=== PATIENT | female | born 1975 | race Two or more races ===

== ENCOUNTER 2021-05-03 16:10 | Emergency (ER) | payer MEDICARE ==
[~2021-05-03] VITALS: Ht 157.5 cm; Wt 113.4 kg
[2021-05-03] MEDS ORDERED: KETOROLAC TROMETH 30 MG/ML 1ML VIAL IV ONE (19:15)
[2021-05-03] MEDS ORDERED: SODIUM CHLORIDE 0.9% 500 ML IV ONE (19:15)
[2021-05-03] MEDS ORDERED: IOHEXOL 300 MG/ML 100ML BOTTLE IJ ONE (20:34)
[2021-05-03] MEDS ORDERED: ONDANSETRON HCL 4 MG/2 ML VIAL ONE (21:22)
[2021-05-03] MEDS ORDERED: ONDANSETRON ODT 4 MG TAB PO ONE (21:30)
[2021-05-03 21:42] LABS: Basophils # (auto) 0 10 ^3/uL (0-0.2); Basophils % (auto) 0.7 % (0.0-2.0); Eosinophils # (auto) 0.3 10 ^3/uL (0-0.8); Hemoglobin 12.7 g/dL (12.2-16.2); Lymphocytes % (auto) 34.9 % (10.0-50.0); Mean Corpuscular Volume 82.3 fL (80.0-100.0); Monocytes # (auto) 0.3 10 ^3/uL (0-1.3); Red Cell Distribution Width 14.7 % (11.8-14.3)
[2021-05-03 21:44] LABS: Eosinophils % (auto) 5.1 % (0.0-7.0); Hematocrit 39.7 % (36.0-46.0); Lymphocytes # (auto) 2.1 10 ^3/uL (0.4-5.4); Mean Corpuscular Hemoglobin 26.2 pg (28.0-32.0); Mean Corpuscular Hgb Conc. 31.9 g/dL (32.0-36.0); Monocytes % (auto) 5.6 % (0.0-12.0); Neutrophils # (auto) 3.3 10 ^3/uL (1.6-8.6); Neutrophils % (auto) 53.7 % (37.0-80.0); Nucleated Red Blood Cells % 0.1 %; Red Blood Cells 4.82 10^6/uL (4.0-5.20); White Blood Cell 6.1 10^3/uL (4.4-10.8)
[2021-05-03 21:59] LABS: Albumin 3.4 g/dL (3.4-5.0); BUN/Creatinine Ratio 18.2; Calcium 8.9 mg/dL (8.5-10.1); Potassium 3.9 mmol/L (3.5-5.1)
[2021-05-03 22:02] LABS: Bilirubin, Total 0.2 mg/dL (0.2-1.0); Total Protein 8.8 g/dL (6.4-8.2)
[2021-05-03] MEDS ORDERED: fentaNYL CITRATE 100 MCG/2 ML VL IV ONE (23:45)
[2021-05-04] MEDS ORDERED: ONDANSETRON HCL 4 MG/2 ML VIAL IV ONE ×2 (01:30→04:00)
[2021-05-04] MEDS ORDERED: MORPHINE SULFATE 4 MG/ML SYR/VIAL IV ONE ×2 (01:30→04:00)
[2021-05-04] MEDS ORDERED: MORPHINE SULFATE 4 MG/ML SYR/VIAL ONE (03:55)
[2021-05-04] MEDS ORDERED: MORPHINE SULFATE INJECTION 2 MG/ML SYRG ONE (03:56)
[2021-05-04 05:01] VITALS: BP 127/85
== END 2021-05-04 05:16 | disposition left against medical advice (07) ==
LOC: ER 16:10
DX: J90 Pleural effusion, not elsewhere classified (principal); J93.9 Pneumothorax, unspecified; C78.7 Secondary malignant neoplasm of liver and intrahepatic bile duct; C48.2 Malignant neoplasm of peritoneum, unspecified; Z88.5 Allergy status to narcotic agent; Z20.822 Contact with and (suspected) exposure to COVID-19
CPT/HCPCS: 36415; 71260; 74177; 80053; 83880; 85025; 87426; 93005; 96361; 96374; 96375; 96376; 99285; J1885; J2270; J2405; J3010; Q0162; Q9967

== ENCOUNTER 2021-08-01 07:55 | Inpatient (IN) | payer MEDICARE, MEDICAID ==
[~2021-08-01] VITALS: Ht 157.5 cm; Wt 106.3 kg
[2021-08-01] MEDS ORDERED: HYDROmorphone HCL 2 MG/ML VL IV ONE ×2 (09:30→10:30)
[2021-08-01] MEDS ORDERED: ONDANSETRON HCL 4 MG/2 ML VIAL IV ONE (09:30)
[2021-08-01 09:35] LABS: Basophils # (auto) 0 10 ^3/uL (0-0.2); Basophils % (auto) 0.3 % (0.0-2.0); Eosinophils # (auto) 0 10 ^3/uL (0-0.8); Hematocrit 38.7 % (36.0-46.0); Hemoglobin 12.3 g/dL (12.2-16.2); Lymphocytes # (auto) 0.5 10 ^3/uL (0.4-5.4); Lymphocytes % (auto) 3.4 % (10.0-50.0); Mean Corpuscular Hemoglobin 24.7 pg (28.0-32.0); Mean Corpuscular Hgb Conc. 31.8 g/dL (32.0-36.0); Mean Corpuscular Volume 77.5 fL (80.0-100.0); Monocytes # (auto) 0.1 10 ^3/uL (0-1.3); Monocytes % (auto) 0.9 % (0.0-12.0); Neutrophils # (auto) 14.2 10 ^3/uL (1.6-8.6); Neutrophils % (auto) 95.4 % (37.0-80.0); Red Blood Cells 4.99 10^6/uL (4.0-5.20); Red Cell Distribution Width 17.4 % (11.8-14.3); White Blood Cell 14.9 10^3/uL (4.4-10.8)
[2021-08-01 09:44] LABS: Albumin 2.9 g/dL (3.4-5.0); Anion Gap 6 (5-15); Blood Urea Nitrogen 12 mg/dL (7-18); Calcium 8.6 mg/dL (8.5-10.1); Carbon Dioxide 23 mmol/L (21-32); Chloride 105 mmol/L (98-107); Glucose 153 mg/dL (74-106); Potassium 3.6 mmol/L (3.5-5.1); Sodium 134 mmol/L (136-145)
[2021-08-01 09:50] LABS: Alanine Aminotransferase 15 U/L (13-56); Alkaline Phosphatase 117 U/L (45-117); Aspartate Aminotransferase 27 U/L (15-37); BUN/Creatinine Ratio 22.6; Bilirubin, Total 0.7 mg/dL (0.2-1.0); GFR African American 160 mL/min; GFR Non-African American 133 mL/min; Total Protein 8.5 g/dL (6.4-8.2)
[2021-08-01] MEDS ORDERED: SODIUM CHLORIDE 0.9% 1,000 ML IVB ONE (10:30)
[2021-08-01] MEDS ORDERED: PROCHLORPERAZINE EDISYLATE 5 MG/ML 2ML VIAL IV ONE (10:30)
[2021-08-01 10:59] LABS: Magnesium 1.6 mg/dL (1.6-2.6)
[2021-08-01] MEDS ORDERED: NITROGLYCERIN 0.4 MG SL TAB SL PRN (14:00)
[2021-08-01] MEDS ORDERED: MAGNESIUM SULFATE 1GM/100ML 100 ML IV ONE (14:15)
[2021-08-01] MEDS ORDERED: SODIUM CHLORIDE 0.9% 1,000 ML IV ONE (14:15)
[2021-08-01] MEDS ORDERED: cefTRIAXone 1GM/50ML D5W 50 ML IV SCH (14:15)
[2021-08-01] MEDS ORDERED: NICOTINE 14 MG/24HR TOPICAL PATCH TD ONE (14:30)
[2021-08-01] MEDS: cefTRIAXone 1GM/50ML D5W 50 ML IV SCH (14:58)
[2021-08-01] MEDS: AZITHROMYCIN 500MG/ 250ML 250 ML IV SCH (15:37)
[2021-08-01 16:51] VITALS: BP 142/91
[2021-08-01 17:27] VITALS: BP 142/91
[2021-08-01] MEDS: METOCLOPRAMIDE HCL 5MG/ml INJ 2ml VIAL IV PRN (17:30)
[2021-08-01] MEDS: MORPHINE SULFATE INJECTION 2 MG/ML SYRG IV PRN ×3 (17:30→22:03)
[2021-08-01] MEDS: HYDROcodone-ACET 5/325MG TAB PO PRN (19:20)
[2021-08-01 20:00] VITALS: BP 140/81
[2021-08-02] VITALS (11 sets, daily range): BP systolic 106–127; BP diastolic 70–90
[2021-08-02] MEDS: MORPHINE SULFATE INJECTION 2 MG/ML SYRG IV PRN ×5 (02:01→20:16)
[2021-08-02] MEDS: AZITHROMYCIN 500MG/ 250ML 250 ML IV SCH (09:20)
[2021-08-02] MEDS: cefTRIAXone 1GM/50ML D5W 50 ML IV SCH (09:20)
[2021-08-02 09:29] LABS: INR 1.22 (0.9-1.15)
[2021-08-02] MEDS: ONDANSETRON HCL 4 MG/2 ML VIAL IV PRN ×3 (10:47→20:25)
[2021-08-02] MEDS: METOCLOPRAMIDE HCL 5MG/ml INJ 2ml VIAL IV PRN (16:47)
[2021-08-03] MEDS: METOCLOPRAMIDE HCL 5MG/ml INJ 2ml VIAL IV PRN ×3 (02:09→17:47)
[2021-08-03] MEDS: MORPHINE SULFATE INJECTION 2 MG/ML SYRG IV PRN ×5 (02:09→22:29)
[2021-08-03 04:46] VITALS: BP 134/106
[2021-08-03] MEDS: HYDROcodone-ACET 5/325MG TAB PO PRN ×2 (05:36→21:04)
[2021-08-03 08:23] LABS: Eosinophils # (auto) 0.1 10 ^3/uL (0-0.8); Eosinophils % (auto) 1.3 % (0.0-7.0); Hemoglobin 10.6 g/dL (12.2-16.2); Mean Corpuscular Volume 77.3 fL (80.0-100.0); Monocytes # (auto) 0.3 10 ^3/uL (0-1.3)
[2021-08-03 08:25] LABS: Basophils # (auto) 0 10 ^3/uL (0-0.2); Basophils % (auto) 0.6 % (0.0-2.0); Hematocrit 33.5 % (36.0-46.0); Lymphocytes # (auto) 1.3 10 ^3/uL (0.4-5.4); Lymphocytes % (auto) 15.8 % (10.0-50.0); Mean Corpuscular Hemoglobin 24.5 pg (28.0-32.0); Mean Corpuscular Hgb Conc. 31.8 g/dL (32.0-36.0); Neutrophils # (auto) 6.3 10 ^3/uL (1.6-8.6); Neutrophils % (auto) 78.3 % (37.0-80.0); Nucleated Red Blood Cells % 0.1 %; Red Blood Cells 4.34 10^6/uL (4.0-5.20); Red Cell Distribution Width 18.2 % (11.8-14.3); White Blood Cell 8.1 10^3/uL (4.4-10.8)
[2021-08-03 08:43] LABS: BUN/Creatinine Ratio 29.4; Potassium 3.8 mmol/L (3.5-5.1)
[2021-08-03 09:00] VITALS: BP 97/57
[2021-08-03] MEDS: AZITHROMYCIN 500MG/ 250ML 250 ML IV SCH (09:34)
[2021-08-03] MEDS: cefTRIAXone 1GM/50ML D5W 50 ML IV SCH (09:34)
[2021-08-03] MEDS ORDERED: SORE THROAT SPRAY 6OZ BOTTLE MT PRN (10:45)
[2021-08-03 13:00] VITALS: BP 110/60
[2021-08-03] MEDS: ONDANSETRON HCL 4 MG/2 ML VIAL IV PRN (13:06)
[2021-08-03] MEDS: LOPERAMIDE HCL 2 MG CAP/TAB PO PRN ×2 (13:07→21:03)
[2021-08-03] MEDS: THROAT LOZENGES(CEPASTAT) MT PRN ×2 (14:55→17:48)
[2021-08-03 17:00] VITALS: BP 107/58
[2021-08-03] MEDS: PANTOPRAZOLE 40 MG/10 ML VIAL INJ IV SCH (21:03)
[2021-08-03 22:00] VITALS: BP 107/68
[2021-08-04] MEDS: MORPHINE SULFATE INJECTION 2 MG/ML SYRG IV PRN ×4 (04:56→20:31)
[2021-08-04 05:00] VITALS: BP 100/59
[2021-08-04 07:05] LABS: Basophils # (auto) 0 10 ^3/uL (0-0.2); Basophils % (auto) 0.6 % (0.0-2.0); Eosinophils # (auto) 0.1 10 ^3/uL (0-0.8); Lymphocytes # (auto) 0.9 10 ^3/uL (0.4-5.4); Mean Corpuscular Volume 77.1 fL (80.0-100.0); Monocytes # (auto) 0.4 10 ^3/uL (0-1.3); Nucleated Red Blood Cells % 0.1 %
[2021-08-04 07:08] LABS: Eosinophils % (auto) 2.6 % (0.0-7.0); Hematocrit 32.2 % (36.0-46.0); Hemoglobin 10.8 g/dL (12.2-16.2); Mean Corpuscular Hemoglobin 25.9 pg (28.0-32.0); Mean Corpuscular Hgb Conc. 33.6 g/dL (32.0-36.0); Neutrophils % (auto) 68.8 % (37.0-80.0); Red Blood Cells 4.17 10^6/uL (4.0-5.20); Red Cell Distribution Width 18.2 % (11.8-14.3); White Blood Cell 4.4 10^3/uL (4.4-10.8)
[2021-08-04 07:35] LABS: Potassium 3.7 mmol/L (3.5-5.1)
[2021-08-04 07:39] LABS: Albumin 2.3 g/dL (3.4-5.0); BUN/Creatinine Ratio 22.9; Calcium 8.5 mg/dL (8.5-10.1)
[2021-08-04 07:42] LABS: Bilirubin, Total 0.7 mg/dL (0.2-1.0); Total Protein 6.8 g/dL (6.4-8.2)
[2021-08-04 09:00] VITALS: BP 130/72
[2021-08-04] MEDS: PANTOPRAZOLE 40 MG/10 ML VIAL INJ IV SCH ×2 (09:26→21:54)
[2021-08-04] MEDS: cefTRIAXone 1GM/50ML D5W 50 ML IV SCH (09:26)
[2021-08-04] MEDS: AZITHROMYCIN 500MG/ 250ML 250 ML IV SCH (09:27)
[2021-08-04] MEDS: ONDANSETRON HCL 4 MG/2 ML VIAL IV PRN ×2 (09:58→14:39)
[2021-08-04] MEDS ORDERED: THROAT LOZENGES(CEPASTAT) MT ONE (10:00)
[2021-08-04 13:00] VITALS: BP 130/80
[2021-08-04 17:00] VITALS: BP 123/73
[2021-08-04] MEDS: HYDROcodone-ACET 5/325MG TAB PO PRN (18:48)
[2021-08-04 21:54] VITALS: BP 114/69
[2021-08-05] VITALS (7 sets, daily range): BP systolic 113–167; BP diastolic 65–82
[2021-08-05] MEDS: HYDROcodone-ACET 5/325MG TAB PO PRN ×2 (00:17→08:52)
[2021-08-05] MEDS: MORPHINE SULFATE INJECTION 2 MG/ML SYRG IV PRN (04:46)
[2021-08-05] MEDS: cefTRIAXone 1GM/50ML D5W 50 ML IV SCH (08:52)
[2021-08-05] MEDS: PANTOPRAZOLE 40 MG/10 ML VIAL INJ IV SCH ×2 (09:18→22:18)
[2021-08-05] MEDS: AZITHROMYCIN 500MG/ 250ML 250 ML IV SCH (10:05)
[2021-08-05] MEDS: diphenhdrAMINE HCL 25 MG CAP PO PRN ×2 (10:06→21:21)
[2021-08-05] MEDS ORDERED: NYSTATIN (MOUTH-THROAT) 500,000 UNITS/5 ML SUSP MT ONE (10:30)
[2021-08-05] MEDS: HYDROcodone-ACET 10/325MG TAB PO PRN ×2 (13:45→20:20)
[2021-08-06 05:00] VITALS: BP 105/50
[2021-08-06 06:01] LABS: Hematocrit 31.1 % (36.0-46.0)
[2021-08-06] MEDS: HYDROcodone-ACET 10/325MG TAB PO PRN ×3 (06:04→20:48)
[2021-08-06 06:05] LABS: Hemoglobin 10.1 g/dL (12.2-16.2); Mean Corpuscular Hemoglobin 24.8 pg (28.0-32.0); Mean Corpuscular Hgb Conc. 32.4 g/dL (32.0-36.0); Mean Corpuscular Volume 76.6 fL (80.0-100.0); Red Blood Cells 4.06 10^6/uL (4.0-5.20); Red Cell Distribution Width 18.3 % (11.8-14.3)
[2021-08-06 06:21] LABS: Albumin 2.2 g/dL (3.4-5.0); BUN/Creatinine Ratio 18.9; Calcium 8.5 mg/dL (8.5-10.1); Potassium 3.9 mmol/L (3.5-5.1)
[2021-08-06 06:24] LABS: Bilirubin, Total 0.4 mg/dL (0.2-1.0); Total Protein 6.8 g/dL (6.4-8.2)
[2021-08-06 06:37] LABS: Band Neutrophils % (manual) 0; Basophils % (manual) 0 (0.0-2.0); Blast Cells 0; Metamyelocytes % 0; Myelocytes % 0; Promyelocytes % 0; Reactive Lymphocytes 0
[2021-08-06] MEDS: cefTRIAXone 1GM/50ML D5W 50 ML IV SCH (08:54)
[2021-08-06 09:00] VITALS: BP 115/70
[2021-08-06] MEDS: PANTOPRAZOLE 40 MG/10 ML VIAL INJ IV SCH ×2 (09:45→20:47)
[2021-08-06] MEDS: AZITHROMYCIN 500MG/ 250ML 250 ML IV SCH (09:47)
[2021-08-06 13:00] VITALS: BP 94/54
[2021-08-06 14:48] LABS: Eosinophils % (manual) 4 (0-7); Lymphocytes % (manual) 19 (10.0-50.0); Monocytes % (manual) 18 (0-12)
[2021-08-06 16:51] VITALS: BP 118/62
[2021-08-06 21:53] VITALS: BP 105/67
[2021-08-06] MEDS: HYDROcodone-ACET 5/325MG TAB PO PRN (23:39)
[2021-08-06] MEDS: diphenhdrAMINE HCL 25 MG CAP PO PRN (23:41)
[2021-08-07 05:03] LABS: White Blood Cell 3.7 10^3/uL (4.4-10.8)
[2021-08-07 05:05] LABS: Hematocrit 30.7 % (36.0-46.0); Hemoglobin 10.1 g/dL (12.2-16.2); Mean Corpuscular Hemoglobin 25.2 pg (28.0-32.0); Mean Corpuscular Hgb Conc. 32.9 g/dL (32.0-36.0); Mean Corpuscular Volume 76.5 fL (80.0-100.0); Red Blood Cells 4.01 10^6/uL (4.0-5.20); Red Cell Distribution Width 18.1 % (11.8-14.3)
[2021-08-07 05:10] LABS: Basophils % (manual) 0 (0.0-2.0); Blast Cells 0; Metamyelocytes % 0; Myelocytes % 0; Promyelocytes % 0; Reactive Lymphocytes 0
[2021-08-07] MEDS: HYDROcodone-ACET 10/325MG TAB PO PRN ×3 (05:10→18:44)
[2021-08-07 05:19] LABS: Potassium 3.9 mmol/L (3.5-5.1)
[2021-08-07 05:25] LABS: Albumin 2.1 g/dL (3.4-5.0); BUN/Creatinine Ratio 28.1; Bilirubin, Total 0.3 mg/dL (0.2-1.0); Calcium 8.4 mg/dL (8.5-10.1); Total Protein 6.6 g/dL (6.4-8.2)
[2021-08-07 05:38] VITALS: BP_SYST 130
[2021-08-07 06:03] LABS: Band Neutrophils % (manual) 11; Eosinophils % (manual) 3 (0-7); Lymphocytes % (manual) 27 (10.0-50.0); Monocytes % (manual) 15 (0-12)
[2021-08-07 09:00] VITALS: BP 117/73
[2021-08-07] MEDS: cefTRIAXone 1GM/50ML D5W 50 ML IV SCH (09:00)
[2021-08-07] MEDS: AZITHROMYCIN 500MG/ 250ML 250 ML IV SCH (10:00)
[2021-08-07] MEDS: PANTOPRAZOLE 40 MG/10 ML VIAL INJ IV SCH ×2 (10:00→20:57)
[2021-08-07] MEDS: HYDROcodone-ACET 5/325MG TAB PO PRN ×2 (10:23→21:12)
[2021-08-07 12:38] VITALS: BP 114/75
[2021-08-07 16:54] VITALS: BP 112/73
[2021-08-07] MEDS: ONDANSETRON HCL 4 MG/2 ML VIAL IV PRN (19:00)
[2021-08-07] MEDS: diphenhdrAMINE HCL 25 MG CAP PO PRN (20:56)
[2021-08-07 21:54] VITALS: BP 121/65
[2021-08-08] MEDS: HYDROcodone-ACET 10/325MG TAB PO PRN ×3 (04:01→18:30)
[2021-08-08 05:38] LABS: Hematocrit 31.3 % (36.0-46.0); Hemoglobin 10.2 g/dL (12.2-16.2); Mean Corpuscular Hgb Conc. 32.5 g/dL (32.0-36.0); Mean Corpuscular Volume 76.7 fL (80.0-100.0); Red Blood Cells 4.07 10^6/uL (4.0-5.20); Red Cell Distribution Width 17.8 % (11.8-14.3); White Blood Cell 4.2 10^3/uL (4.4-10.8)
[2021-08-08 05:55] LABS: Basophils % (manual) 0 (0.0-2.0); Blast Cells 0; Metamyelocytes % 0; Myelocytes % 0; Promyelocytes % 0; Reactive Lymphocytes 0
[2021-08-08 05:56] LABS: Albumin 2.2 g/dL (3.4-5.0); Calcium 8.1 mg/dL (8.5-10.1); Potassium 3.6 mmol/L (3.5-5.1)
[2021-08-08 06:01] LABS: Bilirubin, Total 0.4 mg/dL (0.2-1.0); Total Protein 6.6 g/dL (6.4-8.2)
[2021-08-08 07:35] LABS: Band Neutrophils % (manual) 3; Lymphocytes % (manual) 31 (10.0-50.0)
[2021-08-08 07:36] LABS: Eosinophils % (manual) 4 (0-7); Monocytes % (manual) 18 (0-12)
[2021-08-08 08:30] VITALS: BP 116/80
[2021-08-08] MEDS: cefTRIAXone 1GM/50ML D5W 50 ML IV SCH (09:00)
[2021-08-08] MEDS: ONDANSETRON HCL 4 MG/2 ML VIAL IV PRN ×2 (09:15→20:16)
[2021-08-08] MEDS: PANTOPRAZOLE 40 MG/10 ML VIAL INJ IV SCH ×2 (10:00→22:04)
[2021-08-08] MEDS: AZITHROMYCIN 500MG/ 250ML 250 ML IV SCH (10:00)
[2021-08-08 12:30] VITALS: BP 114/83
[2021-08-08] MEDS: HYDROcodone-ACET 5/325MG TAB PO PRN (14:21)
[2021-08-08 17:00] VITALS: BP_SYST 108; BP_SYST 166; BP_DIAS 68; BP_DIAS 77
[2021-08-08 22:00] VITALS: BP_SYST 111; BP_SYST 172; BP_DIAS 59; BP_DIAS 92
[2021-08-08] MEDS: diphenhdrAMINE HCL 25 MG CAP PO PRN (22:06)
[2021-08-08] MEDS: MORPHINE SULFATE INJECTION 2 MG/ML SYRG IV PRN (22:10)
[2021-08-09] MEDS: HYDROcodone-ACET 10/325MG TAB PO PRN ×4 (00:54→18:43)
[2021-08-09 05:00] VITALS: BP 104/69
[2021-08-09] MEDS: MORPHINE SULFATE INJECTION 2 MG/ML SYRG IV PRN ×2 (08:30→15:40)
[2021-08-09] MEDS: ONDANSETRON HCL 4 MG/2 ML VIAL IV PRN (08:30)
[2021-08-09 09:00] VITALS: BP 113/74
[2021-08-09] MEDS: cefTRIAXone 1GM/50ML D5W 50 ML IV SCH (09:00)
[2021-08-09] MEDS: AZITHROMYCIN 500MG/ 250ML 250 ML IV SCH (10:00)
[2021-08-09] MEDS: PANTOPRAZOLE 40 MG/10 ML VIAL INJ IV SCH ×2 (10:00→22:00)
[2021-08-09] MEDS ORDERED: LACTULOSE 20Gm/30ML SOLN PO ONE (11:30)
[2021-08-09 13:00] VITALS: BP 102/72
[2021-08-09 17:00] VITALS: BP 121/77
[2021-08-09] MEDS: HYDROcodone-ACET 5/325MG TAB PO PRN (21:24)
[2021-08-09 22:00] VITALS: BP 110/69
[2021-08-10] MEDS: HYDROcodone-ACET 10/325MG TAB PO PRN ×3 (03:09→21:01)
[2021-08-10 05:00] VITALS: BP 125/72
[2021-08-10] MEDS ORDERED: OMNIPAQUE ORAL SOLN 500ml 12mg/ml PO ONE (06:04)
[2021-08-10] MEDS ORDERED: IOHEXOL 300 MG/ML 100ML BOTTLE IJ ONE (06:26)
[2021-08-10] MEDS: HYDROcodone-ACET 5/325MG TAB PO PRN ×2 (07:45→17:35)
[2021-08-10] MEDS: ONDANSETRON HCL 4 MG/2 ML VIAL IV PRN ×3 (07:45→19:25)
[2021-08-10 09:28] VITALS: BP 115/75
[2021-08-10] MEDS: PANTOPRAZOLE 40 MG/10 ML VIAL INJ IV SCH (10:00)
[2021-08-10 12:48] VITALS: BP 126/76
[2021-08-10 17:26] VITALS: BP 116/73
[2021-08-10 21:42] VITALS: BP 116/73
[2021-08-10] MEDS: diphenhdrAMINE HCL 25 MG CAP PO PRN (22:30)
[2021-08-11 05:00] VITALS: BP 119/77
[2021-08-11] MEDS: HYDROcodone-ACET 10/325MG TAB PO PRN (08:42)
[2021-08-11] MEDS: ONDANSETRON HCL 4 MG/2 ML VIAL IV PRN ×2 (08:43→18:10)
[2021-08-11 09:00] VITALS: BP 124/74
[2021-08-11] MEDS: MORPHINE SULF 30 mg ER tab PO SCH ×2 (10:00→21:49)
[2021-08-11] MEDS: PANTOPRAZOLE 40 MG/10 ML VIAL INJ IV SCH ×2 (10:00→21:49)
[2021-08-11 13:00] VITALS: BP 126/74
[2021-08-11 17:00] VITALS: BP 112/76
[2021-08-11 20:00] VITALS: BP 124/70
[2021-08-11 22:00] VITALS: BP 124/70
[2021-08-12 05:00] VITALS: BP 119/79
[2021-08-12] MEDS: PANTOPRAZOLE 40 MG/10 ML VIAL INJ IV SCH (08:08)
[2021-08-12] MEDS: MORPHINE SULF 30 mg ER tab PO SCH (08:08)
[2021-08-12 09:00] VITALS: BP 126/72
[2021-08-12] MEDS ORDERED: HYDR-4902 PO (10:38)
[2021-08-12] MEDS ORDERED: MORP-110 PO (10:38)
[2021-08-12] MEDS ORDERED: ONDA-144 PO (11:36)
[2021-08-12] MEDS: ONDANSETRON HCL 4 MG/2 ML VIAL IV PRN ×2 (12:21→16:59)
[2021-08-12] MEDS: HYDROcodone-ACET 10/325MG TAB PO PRN ×2 (12:27→16:59)
[2021-08-12 13:00] VITALS: BP 123/73
[2021-08-12 17:00] VITALS: BP 123/78
[2021-08-12 17:12] VITALS: BP 123/78
== END 2021-08-12 19:55 | disposition home or self-care (01) | DRG 374 ==
LOC: EDBD 07:55 → ER 07:55 → OVERFLOW 13:48 → TELE-WESTW 16:10 → WEST WING 16:11
PROVIDERS: ADMIT Internal Medicine; ATTEND Family Medicine
PROC: 0W993ZZ Drainage of Right Pleural Cavity, Percutaneous Approach (ICD-10-PCS; principal; 2021-08-02)
DX: C78.6 Secondary malignant neoplasm of retroperitoneum and peritoneum (principal); J96.20 Acute and chronic respiratory failure, unspecified whether with hypoxia or hypercapnia; J90 Pleural effusion, not elsewhere classified; E87.1 Hypo-osmolality and hyponatremia; C78.7 Secondary malignant neoplasm of liver and intrahepatic bile duct; R18.0 Malignant ascites; C78.00 Secondary malignant neoplasm of unspecified lung; K92.2 Gastrointestinal hemorrhage, unspecified; E83.42 Hypomagnesemia; K21.9 Gastro-esophageal reflux disease without esophagitis; E86.0 Dehydration; J02.9 Acute pharyngitis, unspecified; C55 Malignant neoplasm of uterus, part unspecified; R19.7 Diarrhea, unspecified; D50.9 Iron deficiency anemia, unspecified; Z20.822 Contact with and (suspected) exposure to COVID-19; Z72.0 Tobacco use; Z85.42 Personal history of malignant neoplasm of other parts of uterus; Z92.21 Personal history of antineoplastic chemotherapy; Z90.710 Acquired absence of both cervix and uterus; Z86.711 Personal history of pulmonary embolism; Z51.5 Encounter for palliative care; Z88.5 Allergy status to narcotic agent
CPT/HCPCS: 36415; 71045; 71260; 74177; 76604; 76942; 80048; 80053; 83690; 83735; 84484; 85007; 85025; 85027; 85610; 85730; 86850; 86900; 86901; 87493; 93005; 96361; 96374; 96375; 96376; 97163; C9113; G0378; J0696; J1642; J2405

== ENCOUNTER 2022-03-09 18:33 | Inpatient (IN) | payer MEDICARE, MEDICAID ==
[~2022-03-09] VITALS: Ht 157.5 cm; Wt 103.0 kg
[~2022-03-09 18:33] MED LIST: HYDR-4902 PO; MORP-110 PO; ONDA-144 PO
[2022-03-09 18:40] VITALS: BP 126/83
[2022-03-09] MEDS ORDERED: IOHEXOL 350 MG/ML 100ML IJ ONE (20:03)
[2022-03-09 20:17] LABS: Mean Corpuscular Hemoglobin 24.5 pg (28.0-32.0); Mean Corpuscular Hgb Conc. 31.1 g/dL (32.0-36.0); White Blood Cell 6.9 10^3/uL (4.4-10.8)
[2022-03-09 20:19] LABS: Hematocrit 33.2 % (36.0-46.0); Hemoglobin 10.3 g/dL (12.2-16.2); Mean Corpuscular Volume 78.9 fL (80.0-100.0); Red Blood Cells 4.21 10^6/uL (4.0-5.20)
[2022-03-09 20:21] LABS: Basophils % (manual) 0 (0.0-2.0); Blast Cells 0; Metamyelocytes % 0; Myelocytes % 0; Promyelocytes % 0; Reactive Lymphocytes 0
[2022-03-09 20:42] LABS: Albumin 3.4 g/dL (3.4-5.0); BUN/Creatinine Ratio 20.4; Calcium 7.7 mg/dL (8.5-10.1); Potassium 3.9 mmol/L (3.5-5.1)
[2022-03-09 20:46] LABS: Bilirubin, Total 0.6 mg/dL (0.2-1.0); Total Protein 7.5 g/dL (6.4-8.2)
[2022-03-09 21:21] LABS: Band Neutrophils % (manual) 4; Eosinophils % (manual) 1 (0-7); Lymphocytes % (manual) 28 (10.0-50.0); Monocytes % (manual) 6 (0-12)
[2022-03-10] MEDS ORDERED: MORPHINE SULFATE 4 MG/ML SYR/VIAL IV ONE (00:30)
[2022-03-10] MEDS ORDERED: ONDANSETRON HCL 4 MG/2 ML VIAL IV ONE (00:30)
[2022-03-10] MEDS ORDERED: NITROGLYCERIN 0.4 MG SL TAB SL PRN (01:00)
[2022-03-10] MEDS ORDERED: ALBUTEROL SULF 2.5 MG/0.5ML(0.5%) NEB SOLN NEB PRN (01:00)
[2022-03-10] MEDS ORDERED: ACETAMINOPHEN 325 MG TAB PO PRN (01:00)
[2022-03-10] MEDS ORDERED: TEMAZEPAM 15 MG CAP PO PRN (01:00)
[2022-03-10] MEDS ORDERED: MORPHINE SULFATE INJ 2 MG/ml SYRG IV PRN (01:00)
[2022-03-10] MEDS: HYDROcodone-ACET 5/325MG TAB PO PRN ×2 (05:26→18:00)
[2022-03-10] MEDS: MORPHINE SULFATE INJ 2 MG/ml SYRG IV PRN ×3 (08:45→20:36)
[2022-03-10] MEDS: ONDANSETRON HCL 4 MG/2 ML VIAL IV PRN ×3 (08:45→20:14)
[2022-03-10] MEDS: ENOXAPARIN SOD 40 MG/0.4 ML SYRINGE SC SCH (10:36)
[2022-03-10] MEDS: MORPHINE SULF 30 mg ER tab PO SCH ×2 (10:36→22:39)
[2022-03-10] MEDS: PANTOPRAZOLE 40 MG TAB PO SCH (10:36)
[2022-03-10 12:16] LABS: INR 1.04 (0.9-1.15); Partial Thromboplastin Time 31.5 sec (24.6-33.4)
[2022-03-10 22:00] VITALS: BP 121/81
[2022-03-11] VITALS (13 sets, daily range): BP systolic 102–140; BP diastolic 54–88
[2022-03-11] MEDS: ONDANSETRON HCL 4 MG/2 ML VIAL IV PRN ×5 (00:27→22:03)
[2022-03-11] MEDS: MORPHINE SULFATE INJ 2 MG/ml SYRG IV PRN ×5 (05:40→23:40)
[2022-03-11 05:53] LABS: Basophils # (auto) 0 10 ^3/uL (0-0.2); Basophils % (auto) 0.2 % (0.0-2.0); Eosinophils # (auto) 0.1 10 ^3/uL (0-0.8); Eosinophils % (auto) 2.1 % (0.0-7.0); Hematocrit 27.2 % (36.0-46.0); Hemoglobin 8.6 g/dL (12.2-16.2); Lymphocytes # (auto) 1.5 10 ^3/uL (0.4-5.4); Lymphocytes % (auto) 32.7 % (10.0-50.0); Mean Corpuscular Hemoglobin 25.1 pg (28.0-32.0); Mean Corpuscular Hgb Conc. 31.7 g/dL (32.0-36.0); Mean Corpuscular Volume 79.2 fL (80.0-100.0); Monocytes # (auto) 0.5 10 ^3/uL (0-1.3); Monocytes % (auto) 10.5 % (0.0-12.0); Neutrophils # (auto) 2.5 10 ^3/uL (1.6-8.6); Neutrophils % (auto) 54.5 % (37.0-80.0); Nucleated Red Blood Cells % 0.1 %; Red Blood Cells 3.43 10^6/uL (4.0-5.20); White Blood Cell 4.5 10^3/uL (4.4-10.8)
[2022-03-11 05:59] LABS: Albumin 2.8 g/dL (3.4-5.0); Calcium 7.4 mg/dL (8.5-10.1); Potassium 4.1 mmol/L (3.5-5.1)
[2022-03-11 06:04] LABS: BUN/Creatinine Ratio 25.5; Bilirubin, Total 0.6 mg/dL (0.2-1.0); Total Protein 6.4 g/dL (6.4-8.2)
[2022-03-11] MEDS: ENOXAPARIN SOD 40 MG/0.4 ML SYRINGE SC SCH (08:01)
[2022-03-11] MEDS: MORPHINE SULF 30 mg ER tab PO SCH ×2 (09:04→22:02)
[2022-03-11] MEDS ORDERED: levoFLOXacin 500MG 100 ML IV SCH (10:00)
[2022-03-11] MEDS: PANTOPRAZOLE 40 MG TAB PO SCH (10:41)
[2022-03-11] MEDS: PIPERACILLIN-TAZOB 3.375GM 100 ML IV SCH ×3 (13:46→23:36)
[2022-03-12 05:00] VITALS: BP 102/53
[2022-03-12] MEDS: PIPERACILLIN-TAZOB 3.375GM 100 ML IV SCH ×4 (06:10→23:11)
[2022-03-12] MEDS: ONDANSETRON HCL 4 MG/2 ML VIAL IV PRN ×3 (06:10→23:11)
[2022-03-12] MEDS: MORPHINE SULFATE INJ 2 MG/ml SYRG IV PRN ×4 (06:11→23:10)
[2022-03-12 06:49] LABS: Basophils # (auto) 0 10 ^3/uL (0-0.2); Eosinophils # (auto) 0.1 10 ^3/uL (0-0.8); Lymphocytes # (auto) 1.9 10 ^3/uL (0.4-5.4); Lymphocytes % (auto) 35.5 % (10.0-50.0); Monocytes # (auto) 0.6 10 ^3/uL (0-1.3); Neutrophils # (auto) 2.7 10 ^3/uL (1.6-8.6); Neutrophils % (auto) 50.6 % (37.0-80.0)
[2022-03-12 06:51] LABS: Basophils % (auto) 0.6 % (0.0-2.0); Eosinophils % (auto) 1.8 % (0.0-7.0); Hematocrit 26.2 % (36.0-46.0); Hemoglobin 8.3 g/dL (12.2-16.2); Mean Corpuscular Hemoglobin 24.8 pg (28.0-32.0); Mean Corpuscular Hgb Conc. 31.7 g/dL (32.0-36.0); Mean Corpuscular Volume 78.2 fL (80.0-100.0); Monocytes % (auto) 11.5 % (0.0-12.0); Nucleated Red Blood Cells % 0.4 %; Red Blood Cells 3.36 10^6/uL (4.0-5.20); White Blood Cell 5.3 10^3/uL (4.4-10.8)
[2022-03-12 07:01] LABS: Albumin 2.7 g/dL (3.4-5.0); Calcium 7.8 mg/dL (8.5-10.1); Potassium 3.8 mmol/L (3.5-5.1)
[2022-03-12 07:02] LABS: Red Cell Distribution Width 20.9 % (11.8-14.3)
[2022-03-12 07:05] LABS: BUN/Creatinine Ratio 21.7; Bilirubin, Total 0.4 mg/dL (0.2-1.0); Total Protein 6.4 g/dL (6.4-8.2)
[2022-03-12 08:35] VITALS: BP 96/50
[2022-03-12] MEDS: APIXABAN 5 MG TAB PO SCH ×2 (09:23→20:59)
[2022-03-12] MEDS: MORPHINE SULF 30 mg ER tab PO SCH ×2 (09:24→20:59)
[2022-03-12] MEDS: PANTOPRAZOLE 40 MG TAB PO SCH (09:24)
[2022-03-12] MEDS ORDERED: APIX5TAB PO (13:59)
[2022-03-12] MEDS ORDERED: PROC10TA2 PO (13:59)
[2022-03-12] MEDS ORDERED: FAMO20TA10 PO (13:59)
[2022-03-12] MEDS ORDERED: LORA-483 GT (13:59)
[2022-03-12 16:46] VITALS: BP 116/79
[2022-03-12 20:53] VITALS: BP 116/79
[2022-03-12] MEDS: DOCUSATE SOD 100 MG CAP PO SCH (20:58)
[2022-03-12 22:00] VITALS: BP 99/53
[2022-03-13] MEDS: HYDROcodone-ACET 5/325MG TAB PO PRN ×2 (04:53→16:09)
[2022-03-13] MEDS: PIPERACILLIN-TAZOB 3.375GM 100 ML IV SCH ×3 (04:58→18:00)
[2022-03-13 05:00] VITALS: BP 99/64
[2022-03-13 06:47] LABS: Hemoglobin 8.4 g/dL (12.2-16.2); Red Blood Cells 3.33 10^6/uL (4.0-5.20); White Blood Cell 6.6 10^3/uL (4.4-10.8)
[2022-03-13 06:50] LABS: Hematocrit 26.1 % (36.0-46.0); Mean Corpuscular Hemoglobin 25.2 pg (28.0-32.0); Mean Corpuscular Hgb Conc. 32.1 g/dL (32.0-36.0); Mean Corpuscular Volume 78.4 fL (80.0-100.0)
[2022-03-13 06:57] LABS: Band Neutrophils % (manual) 0; Basophils % (manual) 0 (0.0-2.0); Blast Cells 0; Eosinophils % (manual) 0 (0-7); Metamyelocytes % 0; Myelocytes % 0; Promyelocytes % 0; Reactive Lymphocytes 0; Red Cell Distribution Width 20.9 % (11.8-14.3)
[2022-03-13 07:11] LABS: BUN/Creatinine Ratio 17.7; Calcium 7.9 mg/dL (8.5-10.1)
[2022-03-13 07:22] LABS: Lymphocytes % (manual) 33 (10.0-50.0); Monocytes % (manual) 2 (0-12)
[2022-03-13] MEDS: ONDANSETRON HCL 4 MG/2 ML VIAL IV PRN ×3 (08:05→21:17)
[2022-03-13 08:35] VITALS: BP 90/59
[2022-03-13] MEDS: DOCUSATE SOD 100 MG CAP PO SCH ×2 (09:25→21:29)
[2022-03-13] MEDS: APIXABAN 5 MG TAB PO SCH ×2 (09:25→21:30)
[2022-03-13] MEDS: MORPHINE SULF 30 mg ER tab PO SCH ×2 (09:25→21:18)
[2022-03-13] MEDS: PANTOPRAZOLE 40 MG TAB PO SCH (09:25)
[2022-03-13 12:47] VITALS: BP 100/66
[2022-03-13 16:44] VITALS: BP 93/51
[2022-03-13 22:00] VITALS: BP 98/61
[2022-03-14] MEDS: PIPERACILLIN-TAZOB 3.375GM 100 ML IV SCH ×4 (00:16→18:00)
[2022-03-14 05:00] VITALS: BP 105/66
[2022-03-14 09:00] VITALS: BP 106/58
[2022-03-14] MEDS: HYDROcodone-ACET 5/325MG TAB PO PRN (09:00)
[2022-03-14] MEDS ORDERED: DOXY-340 PO (09:53)
[2022-03-14] MEDS: MORPHINE SULF 30 mg ER tab PO SCH (10:00)
[2022-03-14] MEDS: PANTOPRAZOLE 40 MG TAB PO SCH (10:07)
[2022-03-14] MEDS: APIXABAN 5 MG TAB PO SCH (10:07)
[2022-03-14] MEDS: DOCUSATE SOD 100 MG CAP PO SCH (10:07)
[2022-03-14 12:40] VITALS: BP 99/52
[2022-03-14 17:00] VITALS: BP 99/52
[2022-03-14 17:35] VITALS: BP 99/52
== END 2022-03-14 21:03 | disposition home or self-care (01) | DRG 193 ==
LOC: ER 18:33 → TELE 03-10 00:54 → TELE-EAST 03-10 21:14
PROVIDERS: ADMIT Nurse Practitioner; ATTEND Nurse Practitioner Acute Care
PROC: 0W993ZZ Drainage of Right Pleural Cavity, Percutaneous Approach (ICD-10-PCS; principal; 2022-03-11)
DX: J18.9 Pneumonia, unspecified organism (principal); J96.21 Acute and chronic respiratory failure with hypoxia; C78.7 Secondary malignant neoplasm of liver and intrahepatic bile duct; J91.8 Pleural effusion in other conditions classified elsewhere; D61.818 Other pancytopenia; J98.11 Atelectasis; R18.8 Other ascites; Z20.822 Contact with and (suspected) exposure to COVID-19; R74.01 Elevation of levels of liver transaminase levels; C55 Malignant neoplasm of uterus, part unspecified; E66.9 Obesity, unspecified; G89.4 Chronic pain syndrome; Z85.42 Personal history of malignant neoplasm of other parts of uterus; Z86.711 Personal history of pulmonary embolism; Z90.49 Acquired absence of other specified parts of digestive tract
CPT/HCPCS: 36415; 71045; 71275; 74176; 76604; 76942; 80048; 80053; 83605; 83880; 83986; 84484; 85007; 85025; 85027; 85379; 85610; 85730; 87040; 87070; 87205; 87426; 89051; 93005; G0378; J2405; J2543